=== PATIENT | male | born 1940 | race Caucasian/White ===

== ENCOUNTER 2020-07-29 16:04 | Inpatient (IN) | payer OTHER ==
[~2020-07-29] VITALS: Ht 170.2 cm; Wt 97.1 kg
[~2020-07-29 16:04] MED LIST: ASPIR 8181 MG PO; FISH OIL 1,001000 M2 PO; HYTRIN 2MG CAPSU2 M1; KEFLEX500 MG PO; LISINOPRIL10 MG PO; LOVASTATIN 20 M20 MG PO; METFORMIN HCL500 MG PO
[2020-07-29 16:12] VITALS: BP 124/72
[2020-07-29] MEDS ORDERED: PROSCAR 5MG TABL5 M1 PO (16:15)
[2020-07-29 16:38] LABS: ABSOLUTE LYMPHOCYTES 1.1 thou/uL (0.8-5.3); ABSOLUTE MONOCYTES 0.4 thou/uL (0.0-1.2); ABSOLUTE NEUTROPHILS 1.8 thou/uL (1.6-8.1); BASOPHILS 1.1 %; EOSINOPHILS 1.3 %; HEMATOCRIT 48.7 % (42.0-52.0); HEMOGLOBIN 16.5 gm/dL (14.0-18.0); LYMPHOCYTES 31.9 %; MCH 31.4 pg (26.0-34.0); MCV 92.2 fL (80.0-100.0); MONOCYTES 12.8 %; MPV 7.6 fl. (7.2-11.1); NUCLEATED RBCS 0 /100WBC; PLATELET COUNT* 108 thou/uL (150-400); POLYS 52.9 %; RBC 5.27 mil/uL (4.50-6.00); RDW-CV 13.6 % (10.5-14.5); WBC 3.4 thou/uL (4.0-11.0)
[2020-07-29 16:51] LABS: APTT 26.7 Seconds (25.0-31.3); PROTIME 10.3 Seconds (9.20-11.50)
[2020-07-29 16:54] LABS: CALCIUM 8.6 mg/dL (8.5-10.1); CREATININE 0.9 mg/dL (0.6-1.3); POTASSIUM 3.6 mmol/L (3.5-5.1)
[2020-07-29 17:01] LABS: ALBUMIN 4.1 g/dL (3.4-5.0); TOTAL BILIRUBIN 0.6 mg/dL (<0.1-1.0); TOTAL PROTEIN 6.7 g/dL (6.4-8.2)
[2020-07-29 19:28] VITALS: BP 130/69
[2020-07-29 20:00] VITALS: BP 118/71
[2020-07-30] VITALS: BP 136/92
--- NOTE | 2020-07-30 00:50 | NUR ---
PT'S SON AFSHIN OWEN CALLED AT 2315 AND MESSAGE LEFT.
[2020-07-30 08:35] VITALS: BP 137/77
--- NOTE | 2020-07-30 12:08 | EKG ---
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
--- NOTE | 2020-07-30 14:30 | NUR ---
SPOKE WITH PT.ON PHONE. HE SAID HE LIVES ALONE. HE IS INDEPENDENT. NO USE OF DME. HE HAS A CLEANING LADY. NO HX OF HH OR SNF. HIS DAUGHTER IS SUPPORTIVE. CM WILL FOLLOW FOR ANY DISCHARGE NEEDS.
[2020-07-30 16:00] VITALS: BP 134/85
[2020-07-30] MEDS ORDERED: TAMSULOSIN HCL0.4 MG PO (16:42)
[2020-07-30] MEDS ORDERED: PRESERVISION A1 EAC2 PO (16:42)
--- NOTE | 2020-07-30 18:14 | NUR ---
ASSESSMENT DOCUMENTED. MEDS GIVEN PER E-MAR. IV PATENT. PT ON 2L NC THIS SHIFT. NO REPORTS OF PAIN. ISOLATION MAINTAINED.
[2020-07-30 20:00] VITALS: BP 131/69
[2020-07-31 00:18] VITALS: BP 116/57
[2020-07-31 06:13] LABS: HEMATOCRIT 42.7 % (42.0-52.0); MCHC 33.9 g/dL (28.0-37.0); MCV 91.3 fL (80.0-100.0); RBC 4.68 mil/uL (4.50-6.00); RDW-CV 13.4 % (10.5-14.5); WBC 4.2 thou/uL (4.0-11.0)
[2020-07-31 06:18] LABS: HEMOGLOBIN 14.5 gm/dL (14.0-18.0)
[2020-07-31 06:34] LABS: ALBUMIN 3.4 g/dL (3.4-5.0); CALCIUM 8.5 mg/dL (8.5-10.1); CREATININE 0.8 mg/dL (0.6-1.3); MAGNESIUM 1.7 mg/dL (1.8-2.4); POTASSIUM 3.9 mmol/L (3.5-5.1); TOTAL BILIRUBIN 0.6 mg/dL (<0.1-1.0); TOTAL PROTEIN 5.7 g/dL (6.4-8.2)
[2020-07-31 08:40] VITALS: BP 126/73
[2020-07-31] MEDS ORDERED: AZITHROMYCIN 2250 MG PO (09:52)
[2020-07-31] MEDS ORDERED: VITAMIN D325 MCG PO (09:53)
[2020-07-31] MEDS ORDERED: VITAMIN C1000 MG PO (09:53)
[2020-07-31 11:14] VITALS: BP 126/73
[2020-07-31 14:09] VITALS: BP 126/73
--- NOTE | 2020-07-31 14:11 | NUR ---
ASSESSMENT DOCUMENTED. MEDS GIVEN PER E-MAR. IV PATENT. NO REPORTS OF PAIN THIS SHIFT. PT ON O2 1L FOR COMFORT ONLY, BUT SATING ABOVE 90% ON ROOM AIR. ISOLATION MAINTAINED. DISCHARGE ORDERS RECIEVED. IV D/C'D. DISCHARGE AND ISOLATION EDUCATION GIVEN, PT STATED UNDERSTANDING. PT LEFT VIA WC.
== END 2020-07-31 13:15 | disposition home or self-care (01) | DRG 177 ==
LOC: M.ERS 16:04 → M.TBA-ER 17:46 → M.ORTHSURG 17:46
PROVIDERS: Family Medicine; ADMIT Internal Medicine; ATTEND Internal Medicine
DX: U07.1 COVID-19 (principal); J96.01 Acute respiratory failure with hypoxia; J12.82 Pneumonia due to coronavirus disease 2019; J44.1 Chronic obstructive pulmonary disease with (acute) exacerbation; J44.0 Chronic obstructive pulmonary disease with (acute) lower respiratory infection; E78.5 Hyperlipidemia, unspecified; E11.9 Type 2 diabetes mellitus without complications; I10 Essential (primary) hypertension; E66.01 Morbid (severe) obesity due to excess calories; Z90.49 Acquired absence of other specified parts of digestive tract; Z79.82 Long term (current) use of aspirin; Z79.84 Long term (current) use of oral hypoglycemic drugs; Z79.899 Other long term (current) drug therapy; Z68.33 Body mass index [BMI] 33.0-33.9, adult